=== PATIENT | female | born 1945 | race Caucasian/White ===

== ENCOUNTER → 2021-08-29 | Outpatient (CLI) | payer MEDICARE ==
--- NOTE | 2021-08-29 10:23 | RAD ---
EXAM: Abdomen sonogram. HISTORY: Ventral hernia. TECHNIQUE: Sonographic imaging of the abdomen was performed. COMPARISON: None. FINDINGS: There is a supraumbilical hernia containing bowel and fat. The hernia defect measures 5.8 c m. IMPRESSION: Supraumbilical hernia containing bowel and fat. Electronically signed by: Berta Dumont MD (08/29/2021 10:21 AM) [id number]
== END ==
LOC: US 08:59
PROVIDERS: ATTEND Family Medicine
DX: K43.9 Ventral hernia without obstruction or gangrene (principal)
CPT/HCPCS: 76705